=== PATIENT | male | born 1970 | race Hispanic/Latino ===

== ENCOUNTER 2023-07-14 16:26 | Emergency (ER) | payer SELFPAY ==
[~2023-07-14] VITALS: Ht 188 cm; Wt 133.4 kg
[2023-07-14 16:51] VITALS: BP 149/95; PULSE 66; RESP 18; TEMP 98.5; O2SAT 95
[2023-07-14 18:01] VITALS: BP 125/74; PULSE 70; RESP 18; TEMP 98.5; O2SAT 95
== END 2023-07-14 18:02 | disposition home or self-care (01) ==
LOC: ER 16:26
DX: R53.83 Other fatigue (principal)
CPT/HCPCS: 80053; 84484; 85025; 99281